=== PATIENT | female | born 1945 | race Caucasian/White ===

== ENCOUNTER 2019-03-27 17:29 | Emergency (ER) | payer MEDICARE, BC ==
[~2019-03-27] VITALS: Ht 165.1 cm; Wt 77.3 kg
[2019-03-27] MEDS ORDERED: ASPIRIN 81 MG TABLET CHEW PO ONE (18:00)
[2019-03-27] MEDS ORDERED: SODIUM CHLORIDE FLUSH 10ML SYR IVF ONE (18:00)
--- NOTE | 2019-03-27 18:29 | NUR ---
Pt to rm 17 from [facility]
[2019-03-27 18:31] LABS: BASOPHILS # (AUTO) 0.04 x10^3/uL (0-0.1); BASOPHILS % (AUTO) 0 % (0-1); EOSINOPHILS % (AUTO) 1 % (1-7); LYMPHOCYTES # (AUTO) 1.78 x10^3/uL (1-3.4); LYMPHOCYTES % (AUTO) 17 % (22-44); MD NO; MEAN CORPUSCULAR HEMOGLOBIN 27.9 pg (27.0-34.8); MEAN CORPUSCULAR HGB CONC 32.3 g/dL (32.4-35.8); MEAN CORPUSCULAR VOLUME 86.2 fL (80-100); MEAN PLATELET VOLUME 7.7 fL (7.4-10.4); MONOCYTES # (AUTO) 0.79 x10^3/uL (0.2-0.8); MONOCYTES % (AUTO) 8 % (2-9); NEUTROPHILS # (AUTO) 7.92 x10^3/uL (1.8-6.8); NEUTROPHILS % (AUTO) 75 % (42-75); PLATELET COUNT 273 x10^3/uL (130-400); RED BLOOD COUNT 5.79 x10^6/uL (3.82-5.3); RED CELL DISTRIBUTION WIDTH 14.2 % (9.6-15.2)
[2019-03-27 18:44] LABS: ALBUMIN 3.8 g/dL (3.4-5.0); ANION GAP 4 mmol/L (5-15); CALCIUM 9.2 mg/dL (8.5-10.1); CHLORIDE 108 mmol/L (98-107)
[2019-03-27 18:50] LABS: CREATININE 0.97 mg/dL (0.55-1.02); TROPONIN I < 0.015 ng/mL (0.000-0.045)
--- NOTE | 2019-03-27 19:07 | NUR ---
ASSUMING CARE OF PT. AT THIS TIME.
[2019-03-27] MEDS ORDERED: ASPIRIN 81 MG TABLET CHEW ONE (19:08)
--- NOTE | 2019-03-27 19:13 | NUR ---
PT. ORIGINALLY TO ED TODAY WITH C/O PALPITATIONS AND DIZZINESS STARTING AT 1330. PT. REPORTS FEELING BETTER AT THIS TIME DURING ASSESSMENT. 2 EKG'S HAVE BEEN COMPLETED ALREADY. PT. PLACED ON CONTINUOUS MONIOTRS. PT. REFUSED ASPIRIN. PT. APPEARS TO BE IN NSR RATE OF 94 ON MONITOR. CALL LIGHT IN REACH. ALL SAFETY MEASURES OBSERVED. SOME LABS STILL PENDING.
[2019-03-27 19:35] LABS: FREE T4 (FREE THYROXINE) 1.21 ng/dL (0.76-1.46); THYROID STIMULATING HORMONE 0.393 mIU/L (0.358-3.740)
--- NOTE | 2019-03-27 20:02 | NUR ---
DR. BRADY AT TO DISCUSS FINDINGS AND POC WITH PT.
[2019-03-27 20:06] VITALS: BP 110/54
== END 2019-03-27 20:39 | disposition home or self-care (01) ==
LOC: ED 19:43
DX: R00.2 Palpitations (principal); E11.22 Type 2 diabetes mellitus with diabetic chronic kidney disease; N18.1 Chronic kidney disease, stage 1; J44.9 Chronic obstructive pulmonary disease, unspecified
CPT/HCPCS: 36415; 71046; 80048; 82040; 83735; 83880; 84439; 84443; 84484; 85025; 93005; 99284

== ENCOUNTER → 2019-10-30 | Outpatient (CLI) | payer MEDICARE, BC ==
[~2019-10-30] MED LIST: ATOR40TA78 PO; CARI350T14 PO; DIAZ5TAB4 PO; ESOM40CA PO; LEVO100T5 PO; MULT-658 PO; MULT-806 PO; RAMI1.2524 PO; TIOT4MIS3 INH; TOLT4CAP12 PO; TURM1CAP PO; VITA1CAP PO
[2019-10-30 14:58] LABS: ALBUMIN 3.5 g/dL (3.4-5.0); ANION GAP 5 mmol/L (5-15); CALCIUM 8.9 mg/dL (8.5-10.1); CHLORIDE 109 mmol/L (98-107)
[2019-10-30 15:01] LABS: ALANINE AMINOTRANSFERASE 16 U/L (12-78); ALKALINE PHOSPHATASE 106 U/L (45-117); BILIRUBIN,TOTAL 0.5 mg/dL (0.2-1.0); CREATININE 0.66 mg/dL (0.55-1.02); TOTAL PROTEIN 7.1 g/dL (6.4-8.2)
[2019-10-30 15:35] LABS: CULTURE INDICATED? YES; MICROSCOPIC INDICATED
== END | disposition home or self-care (01) ==
LOC: STAR 13:10
PROVIDERS: ATTEND Internal Medicine Gastroenterology
DX: Z01.818 Encounter for other preprocedural examination (principal); R14.0 Abdominal distension (gaseous); K59.00 Constipation, unspecified; K22.70 Barrett's esophagus without dysplasia; J44.9 Chronic obstructive pulmonary disease, unspecified; E10.9 Type 1 diabetes mellitus without complications; K76.0 Fatty (change of) liver, not elsewhere classified; G47.30 Sleep apnea, unspecified
CPT/HCPCS: 36415; 80053; 81001; 87086; 93005

== ENCOUNTER 2019-11-03 06:06 | Day surgery (SDC) | payer MEDICARE, BC ==
[2019-10-30 13:51] VITALS: BP 130/90
[~2019-11-03] VITALS: Ht 165.1 cm; Wt 81.8 kg
[2019-11-03] MEDS ORDERED: SODIUM CHLORIDE 0.9% 1,000 ML IV SCH (06:51)
[2019-11-03] MEDS ORDERED: HYDROmorphone 2 MG/ML, 1ML IVPush PRN (07:30)
[2019-11-03] MEDS ORDERED: ONDANSETRON 2MG/ML, 2ML IV PRN (07:30)
[2019-11-03] MEDS ORDERED: PROMETHAZINE 25 MG/ML, 1ML IV PRN (07:30)
[2019-11-03] MEDS ORDERED: FENTANYL PF 100 MCG/2ML IV PRN (07:30)
[2019-11-03] MEDS ORDERED: OXYcodone 5 MG/5 ML ORAL.SOL UDC PO PRN (07:30)
[2019-11-03] MEDS ORDERED: FENTANYL PF 100 MCG/2ML ONE (07:41)
[2019-11-03] MEDS ORDERED: PROPOFOL 10 MG/ML, 20ML ONE (07:41)
[2019-11-03] MEDS ORDERED: MIDAZOLAM 1 MG/ML, 2ML ONE (07:41)
== END 2019-11-03 10:30 | disposition home or self-care (01) ==
LOC: OUT 06:06
PROVIDERS: ATTEND Internal Medicine Gastroenterology
DX: K22.70 Barrett's esophagus without dysplasia (principal); K29.50 Unspecified chronic gastritis without bleeding; K31.7 Polyp of stomach and duodenum; D12.4 Benign neoplasm of descending colon; K59.00 Constipation, unspecified; R19.5 Other fecal abnormalities; E11.9 Type 2 diabetes mellitus without complications; J44.9 Chronic obstructive pulmonary disease, unspecified; Z87.891 Personal history of nicotine dependence; Z88.5 Allergy status to narcotic agent; Z90.710 Acquired absence of both cervix and uterus
CPT/HCPCS: 43239; 43251; 45380; 45385; 82962; 88305; J2250; J2704; J3010; J7030

== ENCOUNTER 2020-03-28 07:29 | Day surgery (SDC) | payer MEDICARE, BC ==
[~2020-03-28] VITALS: Ht 165.1 cm; Wt 84.1 kg
[~2020-03-28 07:29] MED LIST changes: +BENZ200C48 PO; +CHOL10003 PO; +FLAX10004 PO; +IRON
[2020-03-28] MEDS ORDERED: LACTATED RINGERS 1,000 ML IV SCH (08:10)
[2020-03-28 08:13] VITALS: BP 145/75
[2020-03-28] MEDS ORDERED: CHLORHEXIDINE 15 ML UDC MM ONE (08:30)
[2020-03-28] MEDS ORDERED: LABETALOL 5MG/ML, 20ML IV PRN (09:00)
[2020-03-28] MEDS ORDERED: FENTANYL PF 100 MCG/2ML IV PRN (09:00)
[2020-03-28] MEDS ORDERED: ALBUTEROL SULFATE 2.5 MG/3 ML NPPB PRN (09:00)
[2020-03-28] MEDS ORDERED: MIDAZOLAM 1 MG/ML, 2ML IV PRN (09:00)
[2020-03-28] MEDS ORDERED: hydrALAzine 20 MG/ML, 1ML IV PRN (09:00)
[2020-03-28] MEDS ORDERED: MEPERIDINE/PF 25MG/0.5ML IVPush PRN (09:00)
[2020-03-28] MEDS ORDERED: OXYcodone 5 MG/5 ML ORAL.SOL UDC PO PRN (09:00)
[2020-03-28] MEDS ORDERED: PROMETHAZINE 25 MG/ML, 1ML IVPush PRN (09:00)
[2020-03-28 09:02] LABS: ALANINE AMINOTRANSFERASE 37 U/L (12-78); ANION GAP 8 mmol/L (5-15); CALCIUM 9.4 mg/dL (8.5-10.1); CHLORIDE 106 mmol/L (98-107); CREATININE 0.71 mg/dL (0.55-1.02)
[2020-03-28] MEDS ORDERED: FENTANYL PF 100 MCG/2ML ONE ×3 (09:02→11:04)
[2020-03-28 09:04] LABS: ALKALINE PHOSPHATASE 145 U/L (45-117); BILIRUBIN,TOTAL 0.8 mg/dL (0.2-1.0); TOTAL PROTEIN 7.8 g/dL (6.4-8.2)
[2020-03-28] MEDS ORDERED: LIDOCAINE-MPF 2% ,5ML ONE ×2 (09:44→15:06)
[2020-03-28] MEDS ORDERED: ROCURONIUM 10 MG/ML,10ML ONE (09:45)
[2020-03-28] MEDS ORDERED: PROPOFOL 10 MG/ML, 20ML ONE (09:45)
[2020-03-28] MEDS ORDERED: ONDANSETRON 2MG/ML, 2ML ONE (09:45)
[2020-03-28] MEDS ORDERED: DEXAMETHASONE 4 MG/ML, 1ML ONE (09:45)
[2020-03-28] MEDS ORDERED: SUCCINYLCHOLINE 20 MG/ML, 10ML ONE (09:45)
[2020-03-28] MEDS ORDERED: GLUCAGON 1 MG ONE ×2 (10:16→11:23)
[2020-03-28] MEDS ORDERED: OMNIPAQUE 350 MG/ML, 50 ML BOTTLE ONE (11:04)
[2020-03-28] MEDS ORDERED: INDOMETHACIN 50 MG SUPP.RECT ONE (11:37)
== END 2020-03-28 14:15 | disposition home or self-care (01) ==
LOC: OUT 07:29
PROVIDERS: ATTEND Internal Medicine Gastroenterology
DX: K83.8 Other specified diseases of biliary tract (principal); Z11.59 Encounter for screening for other viral diseases; K57.10 Diverticulosis of small intestine without perforation or abscess without bleeding; J44.9 Chronic obstructive pulmonary disease, unspecified; E11.22 Type 2 diabetes mellitus with diabetic chronic kidney disease; I12.9 Hypertensive chronic kidney disease with stage 1 through stage 4 chronic kidney disease, or unspecified chronic kidney disease; N18.2 Chronic kidney disease, stage 2 (mild); E78.5 Hyperlipidemia, unspecified; I25.10 Atherosclerotic heart disease of native coronary artery without angina pectoris; K21.9 Gastro-esophageal reflux disease without esophagitis; G47.33 Obstructive sleep apnea (adult) (pediatric); E66.9 Obesity, unspecified; F32.9 Major depressive disorder, single episode, unspecified; F41.9 Anxiety disorder, unspecified; Z79.899 Other long term (current) drug therapy; Z87.891 Personal history of nicotine dependence; Z88.5 Allergy status to narcotic agent; Z99.81 Dependence on supplemental oxygen
CPT/HCPCS: 36415; 43264; 43274; 74328; 80053; 82962; 93005; C1769; C1894; C2625; J0330; J1100; J1610; J2405; J2704; J3010; J7120; Q9967; U0001

== ENCOUNTER → 2020-05-20 | Outpatient (CLI) | payer MEDICARE, BC ==
[~2020-05-20] MED LIST changes: +BENZ-17 PO; +ESOM20CA PO
[2020-05-20 13:50] LABS: BASOPHILS # (AUTO) 0.04 x10^3/uL (0-0.1); BASOPHILS % (AUTO) 1 % (0-1); EOSINOPHILS # (AUTO) 0.09 x10^3/uL (0-0.4); EOSINOPHILS % (AUTO) 2 % (1-7); LYMPHOCYTES # (AUTO) 1.39 x10^3/uL (1-3.4); LYMPHOCYTES % (AUTO) 22 % (22-44); MD NO; MEAN CORPUSCULAR HEMOGLOBIN 27.7 pg (27.0-34.8); MEAN CORPUSCULAR HGB CONC 32.2 g/dL (32.4-35.8); MEAN CORPUSCULAR VOLUME 85.8 fL (80-100); MEAN PLATELET VOLUME 7.5 fL (7.4-10.4); MONOCYTES # (AUTO) 0.49 x10^3/uL (0.2-0.8); MONOCYTES % (AUTO) 8 % (2-9); NEUTROPHILS # (AUTO) 4.36 x10^3/uL (1.8-6.8); NEUTROPHILS % (AUTO) 68 % (42-75); PLATELET COUNT 216 x10^3/uL (130-400); RED BLOOD COUNT 5.09 x10^6/uL (3.82-5.3); RED CELL DISTRIBUTION WIDTH 14.2 % (9.6-15.2)
[2020-05-20 13:57] LABS: ALBUMIN 3.7 g/dL (3.4-5.0); ANION GAP 6 mmol/L (5-15); CALCIUM 8.7 mg/dL (8.5-10.1); CHLORIDE 107 mmol/L (98-107)
[2020-05-20 14:00] LABS: ALANINE AMINOTRANSFERASE 26 U/L (12-78); ALKALINE PHOSPHATASE 143 U/L (45-117); BILIRUBIN,TOTAL 0.3 mg/dL (0.2-1.0); CREATININE 0.73 mg/dL (0.55-1.02)
== END | disposition home or self-care (01) ==
LOC: STAR 12:46
PROVIDERS: ATTEND Surgery
DX: Z01.818 Encounter for other preprocedural examination (principal); J92.9 Pleural plaque without asbestos
CPT/HCPCS: 36415; 71046; 80053; 85025; 93005

== ENCOUNTER 2020-05-24 08:00 | Outpatient (CLI) | payer MEDICARE, BC ==
[~2020-05-24] VITALS: Ht 165.1 cm; Wt 85.0 kg
== END 2020-05-24 23:59 | disposition home or self-care (01) ==
LOC: STAR 08:00 → EDSTATUS 05-29 08:30
PROVIDERS: ATTEND Surgery
DX: Z01.818 Encounter for other preprocedural examination (principal); Z11.59 Encounter for screening for other viral diseases
CPT/HCPCS: 36415; 87635

== ENCOUNTER → 2020-07-05 | Outpatient (CLI) | payer MEDICARE, BC | END | disposition home or self-care (01) | LOC: STAR 11:45 | PROVIDERS: ATTEND Anesthesiology | DX: Z01.812 Encounter for preprocedural laboratory examination (principal); Z20.828 Contact with and (suspected) exposure to other viral communicable diseases | CPT/HCPCS: 36415; 87635 ==